=== PATIENT | female | born 1945 | race African-American/Black ===

== ENCOUNTER 2019-08-07 17:55 | Inpatient (IN) | payer MEDICARE ==
[~2019-08-07] VITALS: Ht 170.2 cm; Wt 127.5 kg
[2019-08-07] MEDS ORDERED: ASPIRIN EC81 MG ORAL (20:53)
[2019-08-07] MEDS ORDERED: SIMVASTATIN40 MG ORAL (20:53)
[2019-08-07] MEDS ORDERED: COMBIGAN EYE DRO5 ML OP (20:53)
[2019-08-07] MEDS ORDERED: TYLENOL325 MG ORAL (20:53)
[2019-08-07] MEDS ORDERED: LISINOPRIL5 MG ORAL (20:53)
[2019-08-07 20:55] VITALS: BP 130/65
[2019-08-07] MEDS ORDERED: Nitroglycerin Subl 0.4mg tab SL PRN (21:30)
[2019-08-07] MEDS ORDERED: LORazepam Inj 2mg/ml 1ml IV PRN (21:30)
[2019-08-07] MEDS ORDERED: Miralax 17gm pkt ORAL PRN (21:30)
[2019-08-07] MEDS ORDERED: Mylanta II UD 30ml ORAL PRN (21:30)
[2019-08-07] MEDS ORDERED: Albuterol/Ipratropium 3ml neb HHN PRN (21:30)
[2019-08-07] MEDS ORDERED: Morphine Sulfate 2mg/ml Inj(IV/IM USE ONLY) IVP PRN (21:30)
--- NOTE | 2019-08-07 22:15 | NUR ---
NURSE NOTES: Pt dropped off by transporter Vincent Roberts alert and oriented x4, on room air, with no acute s/s of distress noted. Able to ambulate without need for assistive device but pt does endorse an intermittent chronic pain on R knee which can affect her gait at times. Per pt, she was crossing the street to go to the grocery store when she began to feel dizzy and started sweating and "felt like she was going to pass out" but pt stated that she did not lose consciousness. Per [facility] records, Blood Glucose upon admission was 139. Per records, she received flu vaccine at [facility] on 08/07/2019. Skin intact. Belongings with patient upon admission including - eyeglasses and $120 ($100x1, $5x2, $1x10) which she refused to keep in safe. RN educated pt regarding keeping rodrigez at bedside but pt still refused and verbalized understanding. Med recon completed and updated on EMR. Bed in lowest position, call light and belongings within reach.
--- NOTE | 2019-08-07 22:30 | NUR ---
NURSE NOTES: Left message for Dr. Howell regarding admission orders.
--- NOTE | 2019-08-07 22:57 | NUR ---
NURSE NOTES: Orders noted and carried out.
[2019-08-08] VITALS: BP 125/70
--- NOTE | 2019-08-08 03:25 | NUR ---
HAND-OFF: Report given to LEXX iEsenberg. Plan of care endorsed.
--- NOTE | 2019-08-08 03:26 | NUR ---
NURSE NOTES: Received report from LEXX Espinoza. Patient is asleep, lying in semi fowlers; resting comfortably. No signs of acute distress noted. Checked IV site and flushed. No erythema, bleeding or infiltration noted. Bed at lowest position, brakes on, siderailsx2. Call light within reach. Will continue to monitor.
[2019-08-08 04:00] VITALS: BP 102/51
[2019-08-08] MEDS: NovoLOG Insulin Flexpen SUBQ SCH ×4 (06:07→21:00)
[2019-08-08 07:04] LABS: BASOPHILS % (AUTO) 0.9 % (0.0-2.0); EOSINOPHILS % (AUTO) 1.4 % (0.0-3.0); HEMATOCRIT 35.8 % (37.0-47.0); HEMOGLOBIN 11.8 G/DL (12.0-16.0); LYMPHOCYTES % (AUTO) 33.4 % (20.0-45.0); MEAN CORPUSCULAR VOLUME 93 FL (80-99); MONOCYTES % (AUTO) 8.3 % (1.0-10.0); PLATELET COUNT 211 K/UL (150-450); RED BLOOD COUNT 3.87 M/UL (4.20-5.40); RED CELL DISTRIBUTION WIDTH 13.2 % (11.6-14.8); WHITE BLOOD COUNT 5.9 K/UL (4.8-10.8)
[2019-08-08 07:17] LABS: ALANINE AMINOTRANSFERASE 19 U/L (12-78); ALBUMIN 3.6 G/DL (3.4-5.0); ALKALINE PHOSPHATASE 67 U/L (46-116); ANION GAP 9 mmol/L (5-15); ASPARTATE AMINO TRANSFERASE 14 U/L (15-37); BILIRUBIN,TOTAL 0.9 MG/DL (0.2-1.0); BLOOD UREA NITROGEN 18 mg/dL (7-18); CALCIUM 9.1 MG/DL (8.5-10.1); CARBON DIOXIDE 25 MMOL/L (21-32); CHLORIDE 113 MMOL/L (98-107); CHOLESTEROL 149 MG/DL (< 200); CREATININE 1.6 MG/DL (0.55-1.30); HDL CHOLESTEROL 55 MG/DL (40-60); POTASSIUM 4.3 MMOL/L (3.5-5.1); SODIUM 147 MMOL/L (136-145); TRIGLYCERIDES 57 MG/DL (30-150)
--- NOTE | 2019-08-08 07:25 | NUR ---
HAND-OFF: Report given to LEXX Burgos. Plan of care endorsed.
[2019-08-08 08:00] VITALS: BP 129/65
--- NOTE | 2019-08-08 08:13 | NUR ---
NURSE NOTES: Received report and patient from Faina HALLMAN in bed, denies any pain. No s/s of acute respiratory distress noted, breathing is even and unlabored. Bed is in lowest position, with bedside rails up X2, brakes engaged for safety. All needs anticipated and met. Call light is within easy reach. Will continue with the plan of care.
[2019-08-08] MEDS: Heparin 5000 units/ml inj SUBQ SCH ×2 (09:08→21:00)
--- NOTE | 2019-08-08 11:13 | Consultation ---
History of Present Illness General Date patient seen: Aug 08, 2019 Present Illness HPI 74 year old female with hx of morbid obesity, DM, HTN, was taken to [facility] with CC of sudden onset of weakness. She felt that she is going to faint, but she didn't. She thought that her BP was too low, but it wasn't. After initial w/u at [place], she was transferred to [facility] for further w/u. Allergies: Coded Allergies: NO KNOWN ALLERGIES (Verified Allergy, Unknown, 08/07/19) Medication History Scheduled Aspirin Ec* (Aspirin Ec*), 81 MG ORAL DAILY, (Reported) Brimonidine Tartrate/Timolol (Combigan Eye Drops), 5 ML OP BID, (Reported) Lisinopril (Lisinopril*), 5 MG ORAL DAILY, (Reported) Simvastatin (Zocor), 40 MG ORAL BEDTIME, (Reported) Scheduled PRN Acetaminophen (Tylenol), 650 MG ORAL Q6H PRN for Mild Pain (Pain Scale 1-3), ( Reported) Patient History Healthcare decision maker N Resuscitation status Full Code Advanced Directive on File Past Medical/Surgical History Past Medical/Surgical History: (1) Diabetes (2) HTN (hypertension) Review of Systems Constitutional: Reports: no symptoms Physical Exam General Appearance: WD/WN, lethargic Lines, tubes and drains: peripheral, central line HEENT: normocephalic, atraumatic Neck: non-tender, normal alignment, limited range of motion Respiratory/Chest: normal breath sounds, no respiratory distress Abdomen: normal bowel sounds, non tender Genitourinary/Rectal: normal genital exam Last 24 Hour Vital Signs Date Time Temp Pulse Resp B/P (MAP) Pulse Ox O2 Delivery O2 Flow Rate FiO2 08/08/19 09:00 Room Air 08/08/19 08:00 71 08/08/19 08:00 98.1 71 20 129/65 (86) 97 08/08/19 04:00 98.0 66 18 102/51 (68) 99 08/08/19 04:00 53 08/08/19 00:00 60 08/08/19 00:00 98.0 67 18 125/70 (88) 99 08/07/19 21:00 Room Air 08/07/19 20:55 98.1 68 18 130/65 (86) 100 08/07/19 20:53 Room Air 08/07/19 20:45 67 Intake and Output 08/07/19 08/08/19 18:59 06:59 Output Total 5 ml Balance -5 ml Output Urine Total 5 ml Laboratory Tests Test 08/08/19 06:30 White Blood Count 5.9 K/UL (4.8-10.8) Red Blood Count 3.87 M/UL (4.20-5.40) L Hemoglobin 11.8 G/DL (12.0-16.0) L Hematocrit 35.8 % (37.0-47.0) L Mean Corpuscular Volume 93 FL (80-99) Mean Corpuscular Hemoglobin 30.4 PG (27.0-31.0) Mean Corpuscular Hemoglobin Concent 32.9 G/DL (32.0-36.0) Red Cell Distribution Width 13.2 % (11.6-14.8) Platelet Count 211 K/UL (150-450) Mean Platelet Volume 6.2 FL (6.5-10.1) L Neutrophils (%) (Auto) 56.0 % (45.0-75.0) Lymphocytes (%) (Auto) 33.4 % (20.0-45.0) Monocytes (%) (Auto) 8.3 % (1.0-10.0) Eosinophils (%) (Auto) 1.4 % (0.0-3.0) Basophils (%) (Auto) 0.9 % (0.0-2.0) Prothrombin Time 11.1 SEC (9.30-11.50) Prothromb Time International Ratio 1.0 (0.9-1.1) Activated Partial Thromboplast Time 25 SEC (23-33) Sodium Level 147 MMOL/L (136-145) H Potassium Level 4.3 MMOL/L (3.5-5.1) Chloride Level 113 MMOL/L (98-107) H Carbon Dioxide Level 25 MMOL/L (21-32) Anion Gap 9 mmol/L (5-15) Blood Urea Nitrogen 18 mg/dL (7-18) Creatinine 1.6 MG/DL (0.55-1.30) H Estimat Glomerular Filtration Rate mL/min (>60) Glucose Level 104 MG/DL (74-106) Calcium Level 9.1 MG/DL (8.5-10.1) Total Bilirubin 0.9 MG/DL (0.2-1.0) Aspartate Amino Transf (AST/SGOT) 14 U/L (15-37) L Alanine Aminotransferase (ALT/SGPT) 19 U/L (12-78) Alkaline Phosphatase 67 U/L (46-116) Total Protein 7.2 G/DL (6.4-8.2) Albumin 3.6 G/DL (3.4-5.0) Globulin 3.6 g/dL Albumin/Globulin Ratio 1.0 (1.0-2.7) Triglycerides Level 57 MG/DL (30-150) Cholesterol Level 149 MG/DL (< 200) LDL Cholesterol 84 mg/dL (<100) HDL Cholesterol 55 MG/DL (40-60) Cholesterol/HDL Ratio 2.7 (3.3-4.4) L Thyroid Stimulating Hormone (TSH) 1.285 uiU/mL (0.358-3.740) Height (Feet): 5 Height (Inches): 7.00 Weight (Pounds): 281 Medications Current Medications Medications (Trade) Dose Ordered Sig/Honey Route PRN Reason Start Time Stop Time Status Last Admin Dose Admin Acetaminophen (Tylenol) 650 mg Q4H PRN ORAL fever 08/07/19 21:30 09/06/19 21:29 Al Hydroxide/Mg Hydroxide (Mylanta II) 30 ml Q6H PRN ORAL dyspepsia 08/07/19 21:30 09/06/19 21:29 Albuterol/ Ipratropium (Albuterol/ Ipratropium) 3 ml Q4H PRN HHN Shortness of Breath 08/07/19 21:30 08/12/19 21:29 Clonidine HCl (Catapres Tab) 0.1 mg Q4H PRN ORAL For High Blood Pressure 08/07/19 21:30 09/06/19 21:29 Dextrose (Dextrose 50%) 25 ml Q30M PRN IV Hypoglycemia 08/07/19 21:30 09/06/19 21:29 Dextrose (Dextrose 50%) 50 ml Q30M PRN IV Hypoglycemia 08/07/19 21:30 09/06/19 21:29 Heparin Sodium (Porcine) (Heparin 5000 units/ml) 5,000 units EVERY 12 HOURS SUBQ 08/08/19 09:00 09/07/19 08:59 08/08/19 09:08 Insulin Aspart (NovoLOG) BEFORE MEALS AND HS SUBQ 08/08/19 06:30 09/07/19 06:29 Lorazepam (Ativan 2mg/ml 1ml) 0.5 mg Q4H PRN IV For Anxiety 08/07/19 21:30 08/14/19 21:29 Morphine Sulfate (Morphine Sulfate) 1 mg Q4H PRN IVP For Pain 7-10 08/07/19 21:30 08/14/19 21:29 Nitroglycerin (Ntg) 0.4 mg Q5M X 3 DOSES PRN SL Prn Chest Pain 08/07/19 21:30 09/06/19 21:29 Ondansetron HCl (Zofran) 4 mg Q6H PRN IVP Nausea & Vomiting 08/07/19 21:30 09/06/19 21:29 Polyethylene Glycol (Miralax) 17 gm HSPRN PRN ORAL Constipation 08/07/19 21:30 09/06/19 21:29 Temazepam (Restoril) 15 mg HSPRN PRN ORAL Insomnia 08/07/19 21:30 08/14/19 21:29 Assessment/Plan Problem List: (1) Pre-syncope ICD Codes: R55 - Syncope and collapse SNOMED: 548506558 (2) HTN (hypertension) ICD Codes: I10 - Essential (primary) hypertension SNOMED: 74653571 (3) Diabetes ICD Codes: E11.9 - Type 2 diabetes mellitus without complications SNOMED: 91260432 Assessment/Plan: echo doppler of carotid artery telemetry monitoring monitor BP cardiology to see dvt prophylaxis Irma Howell MD Aug 08, 2019 11:13
[2019-08-08 12:00] VITALS: BP 138/81
--- NOTE | 2019-08-08 14:56 | NUR ---
P.T NOTE: P.T EVALUATION COMPLETED. PATIENT CURRENTLY AT BASELINE INDEPENDENT IN ALL ASPECTS OF ADL/FUNCTIONAL MOBILITIES AND GAIT/LOCOMOTION. CURRENT FUNCTIONAL STATUS DOES NOT WARRANT SKILLED P.T SERVICES. EDUCATED PATIENT ON IMPORTANCE OF OOB ACTIVITIES VS BEDREST HOSPITAL STAY UNLESS OTHERWISE ORDERED TO PREVENT DECONDITIONING EFFECTS OF HOSPITALIZATION. PATIENT VERBALIZED UNDERSTANDING. SINDY P.T SERVICED. THANK YOU FOR THIS REFERRAL.
[2019-08-08 16:00] VITALS: BP 133/68
--- NOTE | 2019-08-08 16:04 | NUR ---
CASE MANAGEMENT: REVIEW DIRECT ADMIT FROM [facility] SI: SYNCOPE AND COLLAPSE, HTN; DM 98.1 68 18 130/65 100%RA NA 147; CREA 1.6; RBC 3.87; H/H 11.8/35.8; IS: HEPARIN SQ Q12 CLONIDINE PO Q4/PRN NOVOLOG SQ AC/HS ALBUTEROL HHN Q4/PRN IV MS Q4/PRN : TO 2E TELE UNIT DCP: TO RETURN HOME PLAN: ECHO DOPPLER CAROTID ARTERY CARDIO CONSULT
--- NOTE | 2019-08-08 16:08 | Cardiology Report ---
APPROVED REPORT EXAM: Two-dimensional and M-mode echocardiogram with Doppler and color Doppler. INDICATION Left Ventricular Function M-Mode DIMENSIONS IVSd0.9 (0.7-1.1cm)Left Atrium (MM)3.6 (1.6-4.0cm) LVDd4.6 (3.5-5.6cm)Aortic Root2.1 (2.0-3.7cm) PWd1.1 (0.7-1.1cm)Aortic Cusp Exc.1.7 (1.5-2.0cm) LVDs3.3 (2.5-4.0cm) PWs1.4 cm Normal left ventricular chamber size, systolic function and wall motion. Left ventricular ejection fraction estimated to be 55-60 %. No left ventricular hypertrophy. No evidence of pericardial effusion. All other cardiac chamber sizes are within normal limits. Mild focal aortic valve sclerosis with adequate cusp excursion. Mildly thickened mitral valve leaflets with normal excursion. Mild mitral annulus and aortic root calcification. Pulmonic valve not well visualized. Normal tricuspid valve structure. IVC at normal size with slight physiologic collapse. A color flow and spectral Doppler study was performed and revealed: No aortic regurgitation. Trace mitral regurgitation. Mitral inflow indicates normal left ventricular diastolic function. Trace to mild tricuspid regurgitation. Tricuspid systolic velocities suggests peak right ventricular systolic pressure of 34 mmHg.
--- NOTE | 2019-08-08 16:24 | NUR ---
NURSE NOTES: BS 123. Patient refused insulin coverage. Will continue to monitor patient.
--- NOTE | 2019-08-08 19:37 | History & Physical ---
History and Physical History & Physicial Dictated for Int Med-Dr Morfin no. [id number]. Terrell Garcia MD Aug 08, 2019 19:37
--- NOTE | 2019-08-08 19:46 | NUR ---
HAND-OFF: Report given to LEXX Alvarado. Patient is in stable condition. Addendum: 08/09/19 at 1932 by KASIE WANG RN Disregard: Report given to LEXX Trejo. Patient is in stable condition.
--- NOTE | 2019-08-08 19:51 | Cardiology Progress Note ---
Assessment/Plan Assessment/Plan ? near syncope morrow so far neg repeat trop and ekg and orthostatic vital consider neuro eval no documaentation of a lwo bp made any were in her records lwoer 109 which shoudl not be associated ordinarilty with near syncope pt indicated however that the inspector welded parts were not able to register her bp on their arrival but were ablt to doument a normla bs orthostatic vital will be orderd [id number] Objective Last 24 Hour Vital Signs Date Time Temp Pulse Resp B/P (MAP) Pulse Ox O2 Delivery O2 Flow Rate FiO2 08/08/19 16:00 98.2 64 20 133/68 (89) 100 08/08/19 16:00 63 08/08/19 12:00 98.0 65 20 138/81 (100) 99 08/08/19 12:00 65 08/08/19 09:31 60 14 96 Room Air 08/08/19 09:00 Room Air 08/08/19 08:00 71 08/08/19 08:00 98.1 71 20 129/65 (86) 97 08/08/19 04:00 98.0 66 18 102/51 (68) 99 08/08/19 04:00 53 08/08/19 00:00 60 08/08/19 00:00 98.0 67 18 125/70 (88) 99 08/07/19 21:00 Room Air 08/07/19 20:55 98.1 68 18 130/65 (86) 100 08/07/19 20:53 Room Air 08/07/19 20:45 67 Intake and Output 08/07/19 08/08/19 19:00 07:00 Output Total 5 ml Balance -5 ml Output Urine Total 5 ml Laboratory Tests Test 08/08/19 06:30 White Blood Count 5.9 K/UL (4.8-10.8) Red Blood Count 3.87 M/UL (4.20-5.40) L Hemoglobin 11.8 G/DL (12.0-16.0) L Hematocrit 35.8 % (37.0-47.0) L Mean Corpuscular Volume 93 FL (80-99) Mean Corpuscular Hemoglobin 30.4 PG (27.0-31.0) Mean Corpuscular Hemoglobin Concent 32.9 G/DL (32.0-36.0) Red Cell Distribution Width 13.2 % (11.6-14.8) Platelet Count 211 K/UL (150-450) Mean Platelet Volume 6.2 FL (6.5-10.1) L Neutrophils (%) (Auto) 56.0 % (45.0-75.0) Lymphocytes (%) (Auto) 33.4 % (20.0-45.0) Monocytes (%) (Auto) 8.3 % (1.0-10.0) Eosinophils (%) (Auto) 1.4 % (0.0-3.0) Basophils (%) (Auto) 0.9 % (0.0-2.0) Prothrombin Time 11.1 SEC (9.30-11.50) Prothromb Time International Ratio 1.0 (0.9-1.1) Activated Partial Thromboplast Time 25 SEC (23-33) Sodium Level 147 MMOL/L (136-145) H Potassium Level 4.3 MMOL/L (3.5-5.1) Chloride Level 113 MMOL/L (98-107) H Carbon Dioxide Level 25 MMOL/L (21-32) Anion Gap 9 mmol/L (5-15) Blood Urea Nitrogen 18 mg/dL (7-18) Creatinine 1.6 MG/DL (0.55-1.30) H Estimat Glomerular Filtration Rate mL/min (>60) Glucose Level 104 MG/DL (74-106) Calcium Level 9.1 MG/DL (8.5-10.1) Total Bilirubin 0.9 MG/DL (0.2-1.0) Aspartate Amino Transf (AST/SGOT) 14 U/L (15-37) L Alanine Aminotransferase (ALT/SGPT) 19 U/L (12-78) Alkaline Phosphatase 67 U/L (46-116) Total Protein 7.2 G/DL (6.4-8.2) Albumin 3.6 G/DL (3.4-5.0) Globulin 3.6 g/dL Albumin/Globulin Ratio 1.0 (1.0-2.7) Triglycerides Level 57 MG/DL (30-150) Cholesterol Level 149 MG/DL (< 200) LDL Cholesterol 84 mg/dL (<100) HDL Cholesterol 55 MG/DL (40-60) Cholesterol/HDL Ratio 2.7 (3.3-4.4) L Thyroid Stimulating Hormone (TSH) 1.285 uiU/mL (0.358-3.740) Aldo Valera MD Aug 08, 2019 19:51
[2019-08-08 20:00] VITALS: BP 147/68
--- NOTE | 2019-08-08 20:07 | NUR ---
NURSE NOTES Received patient from LEXX Mendoza , patient in stable condition, AOx4, denies pain at this time, IV access on left hand g 20, asymptomatic, intact, patent, patient states:"I don't need to be here, I'm not sick". bed low&locked,side rails upx2, call light within reach, will continue to monitor and reassess
--- NOTE | 2019-08-08 20:30 | History and Physical Report ---
DATE OF ADMISSION: 08/07/2019 CHIEF COMPLAINT: The patient is a 74-year-old female who presents with chief complaint of "I almost passed out." HISTORY OF PRESENT ILLNESS: Began yesterday, August 07, 2019. The patient went out for a walk and the patient began to experience diaphoresis. The patient then felt lightheaded. The patient denies room spinning. The patient states that she felt unsteady. The patient went to a nearby bus stop and sat down. EMS was called. The patient was transferred to [place] emergency room. 911 was called. The patient was initially transferred to [facility] emergency room. The patient is transferred to [facility] for insurance purposes. The patient is admitted for near syncopal episode. REVIEW OF SYSTEMS: CONSTITUTIONAL: The patient denies weight loss or weight gain. The patient denies fevers or chills. HEENT: The patient denies ear or throat pain. The patient denies headache. CARDIOVASCULAR: The patient denies palpitations or chest pain. CHEST: The patient denies wheeze or shortness of breath. ABDOMEN: The patient denies nausea, vomiting, diarrhea, or constipation. GENITOURINARY: The patient denies dysuria or increased frequency of urination. NEUROMUSCULAR: The patient complains of near syncopal episode as above. The patient denies seizures or generalized weakness. PAST MEDICAL HISTORY: Significant for: 1. Hypertension. 2. Hypercholesterolemia. 3. Diabetes type 2. 4. Chronic renal failure. PAST SURGICAL HISTORY: The patient denies. CURRENT MEDICATIONS: 1. Aspirin 81 mg one tablet p.o. daily. 2. Timolol one drop to both eyes twice daily. 3. Lisinopril 5 mg p.o. daily. 4. Simvastatin 40 mg p.o. nightly. ALLERGIES: No known drug allergies. SOCIAL HISTORY: The patient is single and lives alone. The patient denies tobacco or alcohol use. PHYSICAL EXAMINATION: VITAL SIGNS: Temperature 98.5, respirations 16, pulse 79, and blood pressure 109/79. GENERAL: The patient is a well-developed and well-nourished obese female, in no apparent distress. HEENT: Eyes, pupils are equal and responsive to light and accommodation. Extraocular movements are intact. NECK: Supple without lymphadenopathy. CHEST: Lungs are clear to auscultation bilaterally without wheezes or rales. CARDIOVASCULAR: Regular rhythm and rate. S1, S2 normal without murmurs, rubs, or gallops. ABDOMEN: Soft, nontender, and nondistended. Positive bowel sounds. No evidence of hepatosplenomegaly. Currently, no rebound or guarding noted. EXTREMITIES: Negative for clubbing, cyanosis, or edema. RECTAL/GENITAL: Not performed. NEUROLOGIC: Cranial nerves II through XII are grossly intact without focal deficits. Motor strength is 5/5 bilaterally. Deep tendon reflexes are 2+ plantar. DIAGNOSTIC DATA: An EKG demonstrated normal sinus rhythm at 75 beats per minute. There are no acute ST changes or Q-waves noted. A chest x-ray was reported as no acute disease. LABORATORY STUDIES: WBC 6.4, hemoglobin 12.0, hematocrit 38.0, and platelets 232,000. Sodium 141, potassium 4.1, chloride 111, CO2 21, BUN 17, and creatinine 1.68. Glucose 139. Troponin less than 0.02. BNP is normal at 31. ASSESSMENT: This is a 74-year-old female with: 1. Near syncope. 2. Hypertension. 3. Hypercholesterolemia. 4. Diabetes type 2. 5. Chronic renal failure. TREATMENT: 1. Near syncope. A CT of the brain is pending. An echocardiogram is pending. A Cardiology consultation has been obtained with Dr. Aldo Valera. 2. Hypertension. Continue lisinopril as above. 3. Hypercholesterolemia. Continue atorvastatin as above. 4. History of diabetes. A NovoLog sliding scale has been instituted. 5. Chronic renal failure. Terrell Garcia M.D. DR: DESTIN JOB#: [id number] CC:
[2019-08-09] VITALS: BP 96/61
[2019-08-09 01:42] VITALS: BP 96/61
--- NOTE | 2019-08-09 02:31 | Consultation ---
DATE OF CONSULTATION: 08/08/2019 CARDIOLOGY CONSULTATION CONSULTING PHYSICIAN: Aldo Valera M.D. REFERRING PHYSICIAN: Irma Howell M.D. REASON FOR REFERRAL: Near syncope. HISTORY OF PRESENT ILLNESS: This is an elderly female, 74-year-old with history of multiple medical problems as delineated below. The patient apparently this morning walked to the bus stop where she had some sensation of feeling warmth, she started perspiring, and some black sensation came all over her face and her eyes, she states. The person next to her who stood there, she asked that the person help her and she did cross the street, got to the other side of the street, sat down. She was still having the sensation, asked for some help and asked the stander by to call the paramedics. When the paramedics arrived, reportedly she had blood sugar of 160 and an attempt, according to her, was made to register her blood pressure, they were unable to do that and the patient was just started on IV fluids. As soon as an IV was put in, she states she suddenly became more responsive and all her symptoms that she had completely resolved. Initially she was taken to the emergency room at [facility] where she was evaluated. Her blood pressures documented at [place] have been in the 120s to 130s range. She did have 109/79 and she was subsequently documented to have higher blood pressure readings and eventually was transferred to the emergency room at [facility] because of insurance reasons as I the sample case porter's notes that [facility] where she usually gets her care, was not able to accommodate her. She absolutely denies any chest pain, pressure, tightness, or heaviness. There is no PND or orthopnea. She does not usually have any dizziness lightheadedness on standing. She does not have any heart pounding or palpitations. She thinks that she may have been a bit overdressed and she may have been getting diaphoretic because of that though she does indicate that she has significant amount of diaphoresis at that time, that she has been going on. She does not have any blurred vision, double vision. She did not lose her vision completely. She denies any numbness or tingling. No paralysis or weakness in her arms or legs or face. She was able to cross the street with the help of another person and she states she was off balance. She felt confident that she could do it PAST MEDICAL HISTORY: Positive for diabetes, high blood pressure and high cholesterol. No prior heart attack. No cancer. No stroke. No hepatitis or tuberculosis. No asthma or emphysema. No stomach ulcers. She does have a history of chronic kidney disease. No liver problems. No thyroid problems. No anemia. She does have some arthritis. No HIV, AIDS, blood clots, or any other major medical problems that she been dealing. 02:52 anywhere according to the patient and on my review of the chart from [facility] does not appear that anything other than what she was noted in the chart. SOCIAL HISTORY: She does not smoke or drink. She lives in an apartment with her daughter. She does not use drugs, she never did. REVIEW OF SYSTEMS: GASTROINTESTINAL: She denies nausea, vomiting, or diarrhea. She does have constipation. GENITOURINARY: She denies. PULMONARY: She denies. CONSTITUTIONAL: She denies. NEUROLOGIC: As mentioned in HPI. CARDIAC: As mentioned in HPI. PHYSICAL EXAMINATION: GENERAL: Shows to be overweight elderly female, in no respiratory distress. HEENT: Unremarkable. NECK: Supple. No jugular venous distention is noted. No abdominojugular reflux is noted. LUNGS: Clear to auscultation and percussion. CARDIAC: S1 is normal. S2 is normal. Regular rate and rhythm. No heaves, thrills, or gallops noted. ABDOMEN: Soft and obese. Positive bowel sounds. Nontender. EXTREMITIES: There is no clubbing, cyanosis, or edema. NEUROLOGICAL: She is awake, alert, responsive, in no apparent respiratory distress. VITAL SIGNS: Blood pressure last night was 130/65, she did get as low as 102/51, subsequently her most recent was 133/68. Her heart rate at this time is 60s and saturation of 96 to 100% on room air. LABORATORY AND DIAGNOSTIC DATA: Labs, white count 5.9, hemoglobin 11.8, platelet count of 211. Sodium is 147, potassium 4.3, chloride 113, bicarb 25, BUN of 18, creatinine 1.6, and glucose of 104. Liver function tests are normal. Total cholesterol 149 with LDL of 84 and HDL of 55. Thyroid stimulating hormone of 1.25. INR was 1 and PTT of 25. Records from [place] were reviewed, they did mention that on the field the patient's fingerstick was 160. Her vital signs " were otherwise stable." Her initial blood testing at [place] showed BUN of 17, creatinine 1.68, sodium is 141, lactic acid of 2. Liver function tests were normal. Troponin less than 0.02 and BNP was 31. Her electrocardiogram is not available for review neither from [facility] for review and in my search of the the patient's chart. The report by the physician who reviewed the EKG shows sinus rhythm, rate of 74, no ST-elevation. Chest x-ray, [place], poor exposure, no infiltrates or effusion. ASSESSMENT AND PLAN: 1. Near syncope. 2. Hypertension. 3. Diabetes mellitus. 4. Hyperlipidemia 5. Obesity. 6. Chronic kidney disease. This patient was seen in cardiac consultation. Really the etiology of her near syncope is not completely clear to me. She absolutely denies having any overdose of medications for her blood pressure. She indicated that the paramedics were not able to register her blood pressure, although the [place] records do not indicate that. Her lowest blood pressure at [place] was 109. There is no recording of any blood pressure lower than that. I recommend checking orthostatic vitals. She has had a carotid duplex study that was performed, preliminary report does not show any evidence of carotid stenosis. An echocardiogram has been performed, preliminary report shows normal left ventricular systolic function and normal left ventricular diastolic function. Her blood tests at this point not revealing. Her telemetry data shows sinus rhythm. She does not endorse any chest pain or shortness of breath, nothing to suggest an acute coronary syndrome. Her cardiac enzymes at [place] were negative and here they were not repeated and I will repeat that level. An EKG will be ordered as well and we will follow along. The patient's daughter indicated that she wanted her mother to be transferred to [facility]. We will leave that up to the care of the primary team if appropriate. Listing of her medications from home that are made available include aspirin 81 mg, timolol eye drops, lisinopril 5 mg daily, and Zocor 40 mg at night. She is a diabetic as well. In either case, I would consider neurological evaluation because of her symptoms that she endorse as well. Aldo Valera M.D. DR: Sarabjit JOB#: [id number] CC:
[2019-08-09 04:00] VITALS: BP 102/55
[2019-08-09] MEDS: NovoLOG Insulin Flexpen SUBQ SCH ×3 (06:30→16:30)
--- NOTE | 2019-08-09 07:17 | NUR ---
HAND-OFF: Report given to LEXX Mendoza, patient in stable condition, plan of care endorsed..
--- NOTE | 2019-08-09 07:32 | NUR ---
NURSE NOTES: Received report and patient from LEXX Trejo in bed, denies any pain. No s/s of acute respiratory distress noted, breathing is even and unlabored. Bed is in lowest position, with bedside rails up X2, brakes engaged for safety. All needs anticipated and met. Call light is within easy reach. Will continue with the plan of care.
[2019-08-09 07:43] LABS: BASOPHILS % (AUTO) 1.1 % (0.0-2.0); EOSINOPHILS % (AUTO) 2.2 % (0.0-3.0); HEMATOCRIT 32.8 % (37.0-47.0); HEMOGLOBIN 10.7 G/DL (12.0-16.0); LYMPHOCYTES % (AUTO) 35.8 % (20.0-45.0); MEAN CORPUSCULAR VOLUME 93 FL (80-99); MONOCYTES % (AUTO) 9.8 % (1.0-10.0); NEUTROPHILS % (AUTO) 51.1 % (45.0-75.0); PLATELET COUNT 168 K/UL (150-450); RED BLOOD COUNT 3.52 M/UL (4.20-5.40); RED CELL DISTRIBUTION WIDTH 12.9 % (11.6-14.8); WHITE BLOOD COUNT 4.6 K/UL (4.8-10.8)
[2019-08-09 07:51] LABS: ANION GAP 9 mmol/L (5-15); BLOOD UREA NITROGEN 18 mg/dL (7-18); CALCIUM 8.9 MG/DL (8.5-10.1); CARBON DIOXIDE 22 MMOL/L (21-32); CHLORIDE 111 MMOL/L (98-107); CREATININE 1.4 MG/DL (0.55-1.30); POTASSIUM 4.5 MMOL/L (3.5-5.1); SODIUM 142 MMOL/L (136-145)
[2019-08-09 08:00] VITALS: BP 106/61
[2019-08-09] MEDS: Heparin 5000 units/ml inj SUBQ SCH (08:19)
--- NOTE | 2019-08-09 10:11 | NUR ---
CASE MANAGEMENT: REVIEW 08/09/19 SI: SYNCOPE AND COLLAPSE, HTN; DM 97.6 68 18 106/61 96%RA WBC 4.6; NA 147; CREA 1.6; RBC 3.52; H/H 10.7/32.8; CL 111 IS: HEPARIN SQ Q12 CLONIDINE PO Q4/PRN NOVOLOG SQ AC/HS ALBUTEROL HHN Q4/PRN IV MS Q4/PRN : 2E TELE UNIT DCP: TO RETURN HOME PLAN: MRI BRAIN CARDIO WORK UP IS STILL IN PROGRESS ORTHOSTATIC VITAL ORDERED
[2019-08-09] MEDS ORDERED: ALPRAZolam 0.25mg tab ORAL SCH (11:30)
[2019-08-09 12:00] VITALS: BP 108/62
--- NOTE | 2019-08-09 12:58 | Diagnostic Imaging Report ---
APPROVED REPORT CPT Code: 10287 Vascular Symptoms Dizziness and Vertigo Doppler Spectral Velocity Analysis RightLeft RIGHT SIDE: Imaging reveals no significant plaque within the extracranial carotid arteries. The Doppler spectral flow analysis is within normal limits throughout the extracranial carotid arteries. VERTEBRAL- The vertebral and subclavian arteries are within normal limits. LEFT SIDE: CCA/ECA - Imaging reveals no significant plaque in the common carotid and external carotid arteries. ICA - Imaging reveals irregular plaque in the internal carotid artery. The Doppler signal indicates the degree of stenosis is minimal (5-10%) in the internal carotid artery. VERTEBRAL- The vertebral and subclavian arteries are within normal limits.
--- NOTE | 2019-08-09 13:06 | Pulmonology Progress Note ---
Assessment/Plan Problems: (1) Pre-syncope (2) HTN (hypertension) (3) Diabetes (4) Obesity Assessment/Plan cardio note reviewed MRI of brain pending sliding scale diabetic diet titrate cardiac meds symptomatic treatment. Subjective ROS Limited/Unobtainable: No Interval Events: no new complains, MRI of brain Allergies: Coded Allergies: NO KNOWN ALLERGIES (Verified Allergy, Unknown, 08/07/19) Objective Last 24 Hour Vital Signs Date Time Temp Pulse Resp B/P (MAP) Pulse Ox O2 Delivery O2 Flow Rate FiO2 08/09/19 09:00 Room Air 08/09/19 08:00 97.6 67 18 106/61 (76) 96 08/09/19 08:00 67 08/09/19 08:00 68 66 84 08/09/19 04:00 97.8 60 18 102/55 (71) 98 08/09/19 04:00 60 66 83 08/09/19 03:48 57 08/09/19 00:01 71 08/09/19 00:00 98.3 70 17 96/61 (73) 98 08/08/19 21:00 Room Air 08/08/19 20:24 68 16 96 Room Air 08/08/19 20:00 63 08/08/19 20:00 98.3 70 18 147/68 (94) 100 08/08/19 16:00 98.2 64 20 133/68 (89) 100 08/08/19 16:00 63 Intake and Output 08/08/19 08/09/19 18:59 06:59 Intake Total 200 ml Output Total 5 ml 0 ml Balance -5 ml 200 ml Intake Oral 200 ml Output Urine Total 5 ml Stool Total 0 ml # Voids 2 1 General Appearance: WD/WN HEENT: normocephalic, atraumatic Respiratory/Chest: chest wall non-tender, no respiratory distress Cardiovascular: normal peripheral pulses, regular rhythm, no JVD Abdomen: normal bowel sounds, soft, non tender Extremities: no clubbing Skin: no ulcers Neurologic/Psychiatric: abnormal gait Laboratory Tests 08/09/19 05:25: White Blood Count 4.6L, Red Blood Count 3.52L, Hemoglobin 10.7L, Hematocrit 32.8L, Mean Corpuscular Volume 93, Mean Corpuscular Hemoglobin 30.3, Mean Corpuscular Hemoglobin Concent 32.5, Red Cell Distribution Width 12.9, Platelet Count 168, Mean Platelet Volume 6.1L, Neutrophils (%) (Auto) 51.1, Lymphocytes ( %) (Auto) 35.8, Monocytes (%) (Auto) 9.8, Eosinophils (%) (Auto) 2.2, Basophils (%) (Auto) 1.1, Sodium Level 142, Potassium Level 4.5, Chloride Level 111H, Carbon Dioxide Level 22, Anion Gap 9, Blood Urea Nitrogen 18, Creatinine 1.4H, Estimat Glomerular Filtration Rate , Glucose Level 107H, Calcium Level 8.9, Troponin I 0.000 Current Medications Medications (Trade) Dose Ordered Sig/Honey Route PRN Reason Start Time Stop Time Status Last Admin Dose Admin Acetaminophen (Tylenol) 650 mg Q4H PRN ORAL fever 08/07/19 21:30 09/06/19 21:29 Al Hydroxide/Mg Hydroxide (Mylanta II) 30 ml Q6H PRN ORAL dyspepsia 08/07/19 21:30 09/06/19 21:29 Albuterol/ Ipratropium (Albuterol/ Ipratropium) 3 ml Q4H PRN HHN Shortness of Breath 08/07/19 21:30 08/12/19 21:29 Alprazolam (Xanax) 0.25 mg ONCE ORAL 08/09/19 11:30 08/09/19 13:29 08/09/19 11:48 Clonidine HCl (Catapres Tab) 0.1 mg Q4H PRN ORAL For High Blood Pressure 08/07/19 21:30 09/06/19 21:29 Dextrose (Dextrose 50%) 25 ml Q30M PRN IV Hypoglycemia 08/07/19 21:30 09/06/19 21:29 Dextrose (Dextrose 50%) 50 ml Q30M PRN IV Hypoglycemia 08/07/19 21:30 09/06/19 21:29 Heparin Sodium (Porcine) (Heparin 5000 units/ml) 5,000 units EVERY 12 HOURS SUBQ 08/08/19 09:00 09/07/19 08:59 08/09/19 08:19 Insulin Aspart (NovoLOG) BEFORE MEALS AND HS SUBQ 08/08/19 06:30 09/07/19 06:29 Lorazepam (Ativan 2mg/ml 1ml) 0.5 mg Q4H PRN IV For Anxiety 08/07/19 21:30 08/14/19 21:29 Morphine Sulfate (Morphine Sulfate) 1 mg Q4H PRN IVP For Pain 7-10 08/07/19 21:30 08/14/19 21:29 Nitroglycerin (Ntg) 0.4 mg Q5M X 3 DOSES PRN SL Prn Chest Pain 08/07/19 21:30 09/06/19 21:29 Ondansetron HCl (Zofran) 4 mg Q6H PRN IVP Nausea & Vomiting 08/07/19 21:30 09/06/19 21:29 Polyethylene Glycol (Miralax) 17 gm HSPRN PRN ORAL Constipation 08/07/19 21:30 09/06/19 21:29 Temazepam (Restoril) 15 mg HSPRN PRN ORAL Insomnia 08/07/19 21:30 08/14/19 21:29 Irma Howell MD Aug 09, 2019 13:06
[2019-08-09] MEDS ORDERED: NOVOLOG100 UNITS1 SUBQ (13:08)
--- NOTE | 2019-08-09 15:16 | Diagnostic Imaging Report ---
Indication: Syncope Technique: The head was imaged in a 1.5 Tara magnet. Sequences obtained include sagittal and axial T1 FLAIR, axial T2 fast spin echo with fat saturation, axial T2* GRE, axial T2 FLAIR, diffusion and ADC map. Comparison: None Findings: There is mild prominence of the sulci, ventricles, and basal cisterns consistent with atrophy. Mild, nonspecific T2 hyperintensity noted within white matter. This may be due to chronic small vessel disease. There is no restricted diffusion. Ramirez-white differentiation is normal. There is no mass effect, midline shift, edema, or hemorrhage. There are no abnormal extra-axial or intra-axial fluid collections. The corpus callosum and sella are unremarkable. The brainstem and cerebellum are unremarkable. Bone marrow signal within the visualized osseous structures appears age appropriate and unremarkable otherwise. Impression: No acute intracranial findings. Mild atrophy and evidence of chronic small vessel disease involving white matter tracts.
[2019-08-09 16:00] VITALS: BP 128/66
--- NOTE | 2019-08-09 16:13 | Internal Med Progress Note ---
Subjective Date of Service: Aug 09, 2019 Physician Name Terrell Garcia Attending Physician Maynor Morfin MD Current Medications Medications (Trade) Dose Ordered Sig/Honey Route PRN Reason Start Time Stop Time Status Last Admin Dose Admin Acetaminophen (Tylenol) 650 mg Q4H PRN ORAL fever 08/07/19 21:30 09/06/19 21:29 Al Hydroxide/Mg Hydroxide (Mylanta II) 30 ml Q6H PRN ORAL dyspepsia 08/07/19 21:30 09/06/19 21:29 Albuterol/ Ipratropium (Albuterol/ Ipratropium) 3 ml Q4H PRN HHN Shortness of Breath 08/07/19 21:30 08/12/19 21:29 Clonidine HCl (Catapres Tab) 0.1 mg Q4H PRN ORAL For High Blood Pressure 08/07/19 21:30 09/06/19 21:29 Dextrose (Dextrose 50%) 25 ml Q30M PRN IV Hypoglycemia 08/07/19 21:30 09/06/19 21:29 Dextrose (Dextrose 50%) 50 ml Q30M PRN IV Hypoglycemia 08/07/19 21:30 09/06/19 21:29 Heparin Sodium (Porcine) (Heparin 5000 units/ml) 5,000 units EVERY 12 HOURS SUBQ 08/08/19 09:00 09/07/19 08:59 08/09/19 08:19 Insulin Aspart (NovoLOG) BEFORE MEALS AND HS SUBQ 08/08/19 06:30 09/07/19 06:29 Lorazepam (Ativan 2mg/ml 1ml) 0.5 mg Q4H PRN IV For Anxiety 08/07/19 21:30 08/14/19 21:29 Morphine Sulfate (Morphine Sulfate) 1 mg Q4H PRN IVP For Pain 7-10 08/07/19 21:30 08/14/19 21:29 Nitroglycerin (Ntg) 0.4 mg Q5M X 3 DOSES PRN SL Prn Chest Pain 08/07/19 21:30 09/06/19 21:29 Ondansetron HCl (Zofran) 4 mg Q6H PRN IVP Nausea & Vomiting 08/07/19 21:30 09/06/19 21:29 Polyethylene Glycol (Miralax) 17 gm HSPRN PRN ORAL Constipation 08/07/19 21:30 09/06/19 21:29 Temazepam (Restoril) 15 mg HSPRN PRN ORAL Insomnia 08/07/19 21:30 08/14/19 21:29 Allergies: Coded Allergies: NO KNOWN ALLERGIES (Verified Allergy, Unknown, 08/07/19) ROS Limited/Unobtainable: No Constitutional: Reports: no symptoms HEENT: Reports: no symptoms Cardiovascular: Reports: no symptoms Respiratory: Reports: no symptoms Gastrointestinal/Abdominal: Reports: no symptoms Genitourinary: Reports: no symptoms Neurologic/Psychiatric: Reports: no symptoms Subjective 74 YO F admitted with near syncope. Cover for Int Ramón-Dr Morfin. Objective Last Vital Signs Date Time Temp Pulse Resp B/P (MAP) Pulse Ox O2 Delivery O2 Flow Rate FiO2 08/09/19 12:00 97.5 60 18 108/62 (77) 98 08/09/19 09:10 Room Air Laboratory Tests Test 08/09/19 05:25 White Blood Count 4.6 K/UL (4.8-10.8) L Red Blood Count 3.52 M/UL (4.20-5.40) L Hemoglobin 10.7 G/DL (12.0-16.0) L Hematocrit 32.8 % (37.0-47.0) L Mean Corpuscular Volume 93 FL (80-99) Mean Corpuscular Hemoglobin 30.3 PG (27.0-31.0) Mean Corpuscular Hemoglobin Concent 32.5 G/DL (32.0-36.0) Red Cell Distribution Width 12.9 % (11.6-14.8) Platelet Count 168 K/UL (150-450) Mean Platelet Volume 6.1 FL (6.5-10.1) L Neutrophils (%) (Auto) 51.1 % (45.0-75.0) Lymphocytes (%) (Auto) 35.8 % (20.0-45.0) Monocytes (%) (Auto) 9.8 % (1.0-10.0) Eosinophils (%) (Auto) 2.2 % (0.0-3.0) Basophils (%) (Auto) 1.1 % (0.0-2.0) Sodium Level 142 MMOL/L (136-145) Potassium Level 4.5 MMOL/L (3.5-5.1) Chloride Level 111 MMOL/L (98-107) H Carbon Dioxide Level 22 MMOL/L (21-32) Anion Gap 9 mmol/L (5-15) Blood Urea Nitrogen 18 mg/dL (7-18) Creatinine 1.4 MG/DL (0.55-1.30) H Estimat Glomerular Filtration Rate mL/min (>60) Glucose Level 107 MG/DL (74-106) H Calcium Level 8.9 MG/DL (8.5-10.1) Troponin I 0.000 ng/mL (0.000-0.056) Intake and Output 08/08/19 08/09/19 19:00 07:00 Intake Total 200 ml Output Total 5 ml 0 ml Balance -5 ml 200 ml Intake Oral 200 ml Output Urine Total 5 ml Stool Total 0 ml # Voids 2 1 Objective PHYSICAL EXAMINATION: GENERAL: The patient is a well-developed and well-nourished obese female, in no apparent distress. HEENT: Eyes, pupils are equal and responsive to light and accommodation. Extraocular movements are intact. NECK: Supple without lymphadenopathy. CHEST: Lungs are clear to auscultation bilaterally without wheezes or rales. CARDIOVASCULAR: Regular rhythm and rate. S1, S2 normal without murmurs, rubs, or gallops. ABDOMEN: Soft, nontender, and nondistended. Positive bowel sounds. No evidence of hepatosplenomegaly. Currently, no rebound or guarding noted. EXTREMITIES: Negative for clubbing, cyanosis, or edema. RECTAL/GENITAL: Not performed. NEUROLOGIC: Cranial nerves II through XII are grossly intact without focal deficits. Motor strength is 5/5 bilaterally. Deep tendon reflexes are 2+ plantar. Assessment/Plan Assessment/Plan ASSESSMENT: This is a 74-year-old female with: 1. Near syncope. 2. Hypertension. 3. Hypercholesterolemia. 4. Diabetes type 2. 5. Chronic renal failure. TREATMENT: 1. Near syncope. An MRI of the brain=no acute disease. An echocardiogram LVEF=55-60%. Troponin negative. A Cardiology consultation has been obtained with Dr. Aldo Valera. 2. Hypertension. Continue lisinopril as above. 3. Hypercholesterolemia. Continue atorvastatin as above. 4. History of diabetes. A NovoLog sliding scale has been instituted. 5. Chronic renal failure. Terrell Garcia MD Aug 09, 2019 16:13
--- NOTE | 2019-08-09 19:25 | NUR ---
HAND-OFF: Report given to LEXX Trejo.Patient is being discharged per MD order, endorsed plan to in comming nurse. [place] is awaiting Taxi.
--- NOTE | 2019-08-09 19:40 | NUR ---
NURSE NOTES: Received patient from LEXX Mendoza patient in stable condition, AOx4, awaiting for taxi. Addendum: 08/09/19 at 2009 by FER GOODWIN RN postdoctoral research associate removed, IV removed, tolerated well. Patient accompanied downstairs to the taxi. Left in stable condition.
--- NOTE | 2019-08-09 20:27 | Cardiology Progress Note ---
Assessment/Plan Assessment/Plan 1. Near syncope. 2. Hypertension. 3. Diabetes mellitus. 4. Hyperlipidemia 5. Obesity. 6. Chronic kidney disease. bp seem fien not on nay meds mri noted neg echo good lv fucntion tele Objective Last 24 Hour Vital Signs Date Time Temp Pulse Resp B/P (MAP) Pulse Ox O2 Delivery O2 Flow Rate FiO2 08/09/19 16:00 61 66 72 08/09/19 16:00 61 08/09/19 16:00 97.8 61 18 128/66 (86) 98 08/09/19 12:00 97.5 60 18 108/62 (77) 98 08/09/19 12:00 60 68 78 08/09/19 12:00 60 08/09/19 09:10 68 16 96 Room Air 08/09/19 09:00 Room Air 08/09/19 08:00 97.6 67 18 106/61 (76) 96 08/09/19 08:00 67 08/09/19 08:00 68 66 84 08/09/19 04:00 97.8 60 18 102/55 (71) 98 08/09/19 04:00 60 66 83 08/09/19 03:48 57 08/09/19 00:01 71 08/09/19 00:00 98.3 70 17 96/61 (73) 98 08/08/19 21:00 Room Air General Appearance: alert, obese Intake and Output 08/08/19 08/09/19 19:00 07:00 Intake Total 200 ml Output Total 5 ml 0 ml Balance -5 ml 200 ml Intake Oral 200 ml Output Urine Total 5 ml Stool Total 0 ml # Voids 2 1 Laboratory Tests Test 08/09/19 05:25 White Blood Count 4.6 K/UL (4.8-10.8) L Red Blood Count 3.52 M/UL (4.20-5.40) L Hemoglobin 10.7 G/DL (12.0-16.0) L Hematocrit 32.8 % (37.0-47.0) L Mean Corpuscular Volume 93 FL (80-99) Mean Corpuscular Hemoglobin 30.3 PG (27.0-31.0) Mean Corpuscular Hemoglobin Concent 32.5 G/DL (32.0-36.0) Red Cell Distribution Width 12.9 % (11.6-14.8) Platelet Count 168 K/UL (150-450) Mean Platelet Volume 6.1 FL (6.5-10.1) L Neutrophils (%) (Auto) 51.1 % (45.0-75.0) Lymphocytes (%) (Auto) 35.8 % (20.0-45.0) Monocytes (%) (Auto) 9.8 % (1.0-10.0) Eosinophils (%) (Auto) 2.2 % (0.0-3.0) Basophils (%) (Auto) 1.1 % (0.0-2.0) Sodium Level 142 MMOL/L (136-145) Potassium Level 4.5 MMOL/L (3.5-5.1) Chloride Level 111 MMOL/L (98-107) H Carbon Dioxide Level 22 MMOL/L (21-32) Anion Gap 9 mmol/L (5-15) Blood Urea Nitrogen 18 mg/dL (7-18) Creatinine 1.4 MG/DL (0.55-1.30) H Estimat Glomerular Filtration Rate mL/min (>60) Glucose Level 107 MG/DL (74-106) H Calcium Level 8.9 MG/DL (8.5-10.1) Troponin I 0.000 ng/mL (0.000-0.056) Aldo Valera MD Aug 09, 2019 20:27
--- NOTE | 2019-08-10 13:04 | Discharge Summary ---
Discharge Summary Discharge Summary _ DATE OF ADMISSION: 08/07/2019 DATE OF DISCHARGE 08/09/2019 DISCHARGED BY: Dr. Morfin REASON FOR ADMISSION: 74 years old female with past medical history of hypertension, hypercholesterolemia, diabetes mellitus type 2, chronic renal failure, presented with complaints that she nearly passed out. Patient apparently went for a walk and started to experience diaphoresis and felt lightheaded. She denied room spinning sensation . Patient went to a nearby bus stop and sit down. Paramedics were called , and patient was transferred to [facility] to [facility] and then to [facility] for further management for insurance purposes. CONSULTANTS: bakery worker Dr. Valera hospitalist Dr. Howell [facility] COURSE: Patient admitted to telemetry floor. Troponin was negative. EKG in [place] ED revealed no acute ischemic changes. Telemetry showed sinus rhythm. No evidence of arrhythmia. Echocardiogram revealed preserved ejection fraction 55 to 60% with no evidence of left ventricular hypertrophy. No evidence of pericardial effusion . No evidence of wall motion abnormality. Right ventricular systolic pressure of 34. Lipid panel was stable. TSH was within normal limits. Pulse oximetry was stable on room air Orthostatic vital signs actually revealed elevated blood pressure upon standing compared to lying down blood rpessure. MRI of the brain revealed no evidence of acute intracranial pathology. Patient was on gentle IV hydration. Blood pressure was closely monitored and remained stable without any antihypertensive medication. Blood sugar was managed with sliding scale of insulin and remained stable. Bowel regimen instituted. Supportive care provided. Fall precaution maintained. Renal parameters and electrolytes were closely monitored. Electrolytes corrected as needed, and nephrotoxins were avoided. With IV hydration creatinine from 1.6 down to 1.4. Sodium down to 142. Patient likely was mildly dehydrated as evidenced initially by hypernatremia and elevated creatinine , which possibly was a cause for near syncopal episode. Patient was clinically stabilized and ready for discharge home. FINAL DIAGNOSES: Near syncopal episode possibly due to dehydration Hypertension Diabetes mellitus Hyperlipidemia Obesity Chronic kidney disease DISCHARGE MEDICATIONS: See Medication Reconciliation list. DISCHARGE INSTRUCTIONS: Patient was discharged home. Follow up with primary care provider in one week. I have been assigned to dictate discharge summary for this account. I was not involved in the patient's management. Kelsie Dyson NP Aug 10, 2019 13:04
--- NOTE | 2019-08-18 17:20 | Cardiology Report ---
APPROVED REPORT EKG Measurement Heart [id number] Sinus bradycardia Minimal voltage criteria for LVH, may be normal variant Borderline ECG
== END 2019-08-09 19:42 | disposition home or self-care (01) | DRG 641 ==
LOC: 2E 20:03
DX: E86.0 Dehydration (principal); Z68.41 Body mass index [BMI] 40.0-44.9, adult; E87.0 Hyperosmolality and hypernatremia; R55 Syncope and collapse; E11.22 Type 2 diabetes mellitus with diabetic chronic kidney disease; N18.9 Chronic kidney disease, unspecified; E78.00 Pure hypercholesterolemia, unspecified; I12.9 Hypertensive chronic kidney disease with stage 1 through stage 4 chronic kidney disease, or unspecified chronic kidney disease; Z79.82 Long term (current) use of aspirin; E66.9 Obesity, unspecified
CPT/HCPCS: 36415; 70551; 80048; 80053; 80061; 82962; 84443; 84484; 85025; 85610; 85730; 93005; 93306; 93880; 94664; J1815